=== PATIENT | female | born 1970 | race African-American/Black ===

== ENCOUNTER 2017-07-16 09:07 | Emergency (ER) | payer OTHER ==
[~2017-07-16] VITALS: Ht 177.8 cm; Wt 131.0 kg
[~2017-07-16 09:07] MED LIST: ASPI81TA82 PO; BIOT5000 PO; CALC500T21 PO; CANA300T PO; CARV12.5 PO; CHOL50006 PO; DIOV160T60 PO; GLUCTAB PO; TAB-TAB PO; VERA120T3 PO; VITATAB11 PO
[2017-07-16 09:09] VITALS: BP 174/103; PULSE 94; RESP 24; TEMP 97.5; O2SAT 100
--- NOTE | 2017-07-16 09:44 | PD ---
HPI . left side bump for > 1 week Chief Complaint: Skin Problem Time Seen by Provider: 09:44 Travel History International Travel<30 days: No Contact w/Intl Traveler<30days: No Traveled to known affect area: No History of Present Illness HPI 46 yr old female here with complaints of a bump on her back for quite some time. She says over the past week it started to get larger. She says that is causing her some discomfort and giving her trouble when she is trying to sleep. She denies any fever or chills. She tried to get with her primary care provider and could not obtain an appointment. She decided come to the emergency department for further evaluation. PFSH Past Medical History Cancer: No Cardiovascular Problems: Yes Chest Pain: Yes (stress test 2009) Diabetes: Yes Patient Takes Glucophage: Yes Diminished Hearing: No GERD: Yes Genitourinary: No Headaches: Yes Hepatitis: No Hiatal Hernia: No Hypertension: Yes Musculoskeletal: Yes (LOWER BACK) Neurologic: Yes (RT SIDED WEAKNESS INTERMITTENTLY) Psychiatric: No Reproductive: No Respiratory: Yes (MILD SLEEP APNEA) Migraines: Yes Sleep Apnea: Yes (MILD, NO CPAP) ?: Unknown Menopausal: No : 0 Para: 0 Miscarriage: 0 : 0 Past Surgical History Abdominal Surgery: Yes (GASTRIC SLEEVE) Body Medical Devices: NONE Cardiac Surgery: No Ear Surgery: No Endocrine Surgery: No Eye Surgery: Yes (RETINAL SURGERY RT EYE) Genitourinary Surgery: No Gynecologic Surgery: No Joint Replacement: No Oral Surgery: Yes (wisdom teeth removed) Pacemaker: No Thoracic Surgery: No Other Surgery: Yes ("lump removed from my lower left leg,benign") Family History Family Hypercholesterolemia: No Social History Alcohol Use: Yes Tobacco Use: No Substance Use: No Allergies-Medications (Allergen,Severity, Reaction): Coded Allergies: No Known Allergies (Verified , 07/16/17) Reported Meds & Prescriptions Reported Meds & Active Scripts Active Reported Biotin 5 000 Tab 5,000 Mcg PO DAILY Vitamin B Complex (B-Complex Vitamins) Tab 1 Tab PO DIRECTED Vitamin D (Cholecalciferol) 5,000 Unit Tab 10,000 Unit PO DIRECTED Diovan 160 mg (Valsartan) 160 Mg Tab 160 Mg PO DAILY Invokana (Canagliflozin) 300 Mg Tab 1 Tab PO DAILY Calcium 500+D (Calcium/Vitamin D) 500 + Tab 500 + PO BID Multivitamin (Multivitamins) 1 Tab Tab 1 Tab PO TID Aspir-81 (Aspirin) 81 Mg Tab 81 Mg PO DAILY Glucophage (Metformin HCl) 500 Mg Tab 1,000 Mg PO BID TAKE IF BLOOD SUGAR IS GREATER THAT 150 Verapamil Hcl (Verapamil HCl) 120 Mg Tab 180 Mg PO BID Coreg 12.5 mg (Carvedilol) 12.5 Mg Tab 6.25 Mg PO BID Review of Systems General / Constitutional: No: Fever Eyes: No: Visual changes HENT: No: Headaches Cardiovascular: No: Chest Pain or Discomfort Respiratory: No: Shortness of Breath Gastrointestinal: No: Abdominal Pain Genitourinary: No: Dysuria Musculoskeletal: No: Pain Skin: Positive Lumps (left side of back ), No Rash Neurologic: No: Weakness Psychiatric: No: Depression Endocrine: No: Polydipsia Hematologic/Lymphatic: No: Easy Bruising Physical Exam Narrative GENERAL: AAO x 3, no acute distress, Well-nourished, well-developed patient. SKIN: Warm and dry. No visible rashes or bruising. left side of back with what appears to be a sebaceous cyst without evidence of infection, no erythema, edema , fluctuance, or warmth. HEAD: Normocephalic and atraumatic. EYES: No scleral icterus. No injection or drainage. ENT: No nasal drainage noted. Mucous membranes pink. Airway patent. NECK: Supple, trachea midline. No JVD. CARDIOVASCULAR: Regular rate and rhythm without murmurs, gallops, or rubs. RESPIRATORY: Breath sounds equal bilaterally. No accessory muscle use. No rhonchi or rales. GASTROINTESTINAL:visual inspection normal EXTREMITIES: No cyanosis or edema. BACK: No obvious deformity. NEURO: CN II-12 intact, PSYCH: AAO x 3, normal affect. Data Data Last Documented VS Vital Signs Date Time Temp Pulse Resp B/P (MAP) Pulse Ox O2 Delivery O2 Flow Rate FiO2 07/16/17 09:09 97.5 94 24 174/103 (126) 100 Room Air MDM Medical Decision Making Medical Screen Exam Complete: Yes Emergency Medical Condition: No Medical Record Reviewed: Yes Differential Diagnosis Sebaceous cyst, less likely infected sebaceous cyst, less likely abscess Narrative Course A medical screening exam was performed: At the time of evaluation the presenting medical condition was determined not to be of an emergent nature. The patient was given the option of receiving additional care, but declined. Patient was given options for additional community resources from which to obtain care. The Patient Has Been advised to seek medical attention for their presenting complaint. The patient has been advised to return to the ER at any time if an emergent condition develops. Diagnosis Primary Impression: Encounter for medical screening examination Condition: Stable Aleyda Watters Jul 16, 2017 09:44
== END 2017-07-16 10:05 | disposition left against medical advice (07) ==
LOC: NETRI 09:07
DX: R22.2 Localized swelling, mass and lump, trunk (principal)
CPT/HCPCS: 99281

== ENCOUNTER 2017-08-07 16:16 | Emergency (ER) | payer OTHER ==
[~2017-08-07] VITALS: Ht 177.8 cm; Wt 140.0 kg
[2017-08-07 16:19] VITALS: BP 175/99; PULSE 95; RESP 15; TEMP 98.4; O2SAT 98
[2017-08-07] MEDS ORDERED: SODIUM CHLOR 0.9% 1000 ML INJ 1,000 ML IV ONE (17:21)
[2017-08-07] MEDS ORDERED: SODIUM CHLORIDE 0.9% FLUSH 10 ML FLUSH IVF PRN (17:30)
[2017-08-07] MEDS ORDERED: MECLIZINE HCL 25 MG TAB PO ONE (17:30)
--- NOTE | 2017-08-07 17:31 | PD ---
HPI Chief Complaint: Dizziness Time Seen by Provider: 17:11 Travel History International Travel<30 days: No Contact w/Intl Traveler<30days: No Traveled to known affect area: No History of Present Illness HPI 46-year-old female presents to the emergency department for evaluation of 2 episodes of dizziness that occurred today while she was leaving work. She states they lasted a couple of minutes each time. She felt lightheaded and states she was diaphoretic and had a headache. She states that the symptoms are completely resolved at this time. She denies any chest pain during the dizziness or now. No shortness of breath. No abdominal pain. No nausea, vomiting, diarrhea. Patient reports history of hypertension and diabetes. She denies . Patient denies any weakness or syncope. No visual changes. Patient states that in the past, she has had similar symptoms with a migraine headache. No history of heart disease. PFSH Past Medical History Cancer: No Cardiovascular Problems: Yes Chest Pain: Yes (stress test 2009) Diabetes: Yes Patient Takes Glucophage: Yes (08/07/17 @ 0900) Diminished Hearing: No GERD: Yes Genitourinary: No Headaches: Yes Hepatitis: No Hiatal Hernia: No Hypertension: Yes Musculoskeletal: Yes (LOWER BACK) Neurologic: Yes (RT SIDED WEAKNESS INTERMITTENTLY) Psychiatric: No Reproductive: No Respiratory: Yes (MILD SLEEP APNEA) Migraines: Yes Sleep Apnea: Yes (MILD, NO CPAP) ?: Not Menopausal: No : 0 Para: 0 Miscarriage: 0 : 0 Past Surgical History Abdominal Surgery: Yes (GASTRIC SLEEVE) Body Medical Devices: NONE Cardiac Surgery: No Ear Surgery: No Endocrine Surgery: No Eye Surgery: Yes (RETINAL SURGERY RT EYE) Genitourinary Surgery: No Gynecologic Surgery: No Joint Replacement: No Neurologic Surgery: No Oral Surgery: Yes (wisdom teeth removed) Pacemaker: No Thoracic Surgery: No Other Surgery: Yes ("lump removed from my lower left leg,benign") Family History Family Hypercholesterolemia: No Social History Alcohol Use: No Tobacco Use: No Substance Use: No Allergies-Medications (Allergen,Severity, Reaction): Coded Allergies: No Known Allergies (Verified , 07/16/17) Reported Meds & Prescriptions Reported Meds & Active Scripts Active Reported Biotin 5 000 Tab 5,000 Mcg PO DAILY Vitamin B Complex (B-Complex Vitamins) Tab 1 Tab PO DIRECTED Vitamin D (Cholecalciferol) 5,000 Unit Tab 10,000 Unit PO DIRECTED Diovan 160 mg (Valsartan) 160 Mg Tab 160 Mg PO DAILY Invokana (Canagliflozin) 300 Mg Tab 1 Tab PO DAILY Calcium 500+D (Calcium/Vitamin D) 500 + Tab 500 + PO BID Multivitamin (Multivitamins) 1 Tab Tab 1 Tab PO TID Aspir-81 (Aspirin) 81 Mg Tab 81 Mg PO DAILY Glucophage (Metformin HCl) 500 Mg Tab 1,000 Mg PO BID TAKE IF BLOOD SUGAR IS GREATER THAT 150 Verapamil Hcl (Verapamil HCl) 120 Mg Tab 180 Mg PO BID Coreg 12.5 mg (Carvedilol) 12.5 Mg Tab 6.25 Mg PO BID Review of Systems Except as stated in HPI: all other systems reviewed are Neg Physical Exam Narrative GENERAL: Well-nourished, well-developed obese female patient, afebrile. SKIN: Focused skin assessment warm/dry. HEAD: Normocephalic. Atraumatic. ENT: Mucosa pink and moist. No erythema or exudates. No uvular edema. No uvular , palatal, or tonsillar deviation. Airway patent. Nasal turbinates appear normal without nasal blood, purulent drainage or septal hematoma. Bilateral tympanic membranes are clear without erythema or perforation. EYES: No scleral icterus. No injection or drainage. NECK: Supple, trachea midline. No JVD or lymphadenopathy. CARDIOVASCULAR: Regular rate and rhythm without murmurs, gallops, or rubs. RESPIRATORY: Breath sounds equal bilaterally. No accessory muscle use. Lungs sounds are clear to auscultation. GASTROINTESTINAL: Abdomen soft, non-tender, nondistended. MUSCULOSKELETAL: No cyanosis, or edema. NEUROLOGICAL: Awake and alert. Cranial nerves II through XII intact. Motor and sensory grossly within normal limits. Five out of 5 muscle strength in all muscle groups. Normal speech. Finger to nose is normal bilaterally. Heel-to- wall is normal bilaterally. Data Data Last Documented VS Vital Signs Date Time Temp Pulse Resp B/P (MAP) Pulse Ox O2 Delivery O2 Flow Rate FiO2 08/07/17 18:03 84 18 158/93 (114) 83 18 160/94 (116) 95 18 163/90 (114) 08/07/17 17:44 99 Room Air 08/07/17 16:19 98.4 Orders Orders Electrocardiogram (08/07/17 ) Electrocardiogram (08/07/17:21) Ed Urine Pregnancytest Poc (08/07/17:) Complete Blood Count With Diff (08/07/17:) Comprehensive Metabolic Panel (08/07/17) Magnesium (Mg) (08/07/17:) Ckmb (Isoenzyme) Profile (08/07/17:) Troponin I (08/07/17:) Urinalysis - C+S If Indicated (08/07/17:) Ecg Monitoring (08/07/17:) Iv Access Insert/Monitor (08/07/17:) Oximetry (08/07/17) Meclizine (Antivert) (08/07/17:) Sodium Chloride 0.9% Flush (Ns Flush) (08/07/17:) Sodium Chlor 0.9% 1000 Ml Inj (Ns 1000 M (08/07/17:) Orthostatic Vital Signs (08/07/17:) Lipase (08/07/17:) Labs Laboratory Tests Test 08/07/17 17:29 08/07/17 17:37 Urine Color YELLOW Urine Turbidity CLEAR Urine pH 5.0 Urine Specific [place] 1.035 Urine Protein NEG mg/dL Urine Glucose (UA) 1000 mg/dL Urine Ketones TRACE mg/dL Urine Occult Blood NEG Urine Nitrite NEG Urine Bilirubin NEG Urine Urobilinogen LESS THAN 2.0 MG/DL Urine Leukocyte Esterase NEG Urine RBC 1 /hpf Urine WBC 1 /hpf Urine Squamous Epithelial Cells <1 /hpf Microscopic Urinalysis Comment CULT NOT INDICATED White Blood Count 8.5 TH/MM3 Red Blood Count 4.51 MIL/MM3 Hemoglobin 13.6 GM/DL Hematocrit 40.8 % Mean Corpuscular Volume 90.6 FL Mean Corpuscular Hemoglobin 30.2 PG Mean Corpuscular Hemoglobin Concent 33.3 % Red Cell Distribution Width 13.8 % Platelet Count 311 TH/MM3 Mean Platelet Volume 8.9 FL Neutrophils (%) (Auto) 54.8 % Lymphocytes (%) (Auto) 36.4 % Monocytes (%) (Auto) 6.5 % Eosinophils (%) (Auto) 1.2 % Basophils (%) (Auto) 1.1 % Neutrophils # (Auto) 4.7 TH/MM3 Lymphocytes # (Auto) 3.1 TH/MM3 Monocytes # (Auto) 0.6 TH/MM3 Eosinophils # (Auto) 0.1 TH/MM3 Basophils # (Auto) 0.1 TH/MM3 CBC Comment DIFF FINAL Differential Comment Blood Urea Nitrogen 20 MG/DL Creatinine 0.74 MG/DL Random Glucose 112 MG/DL Total Protein 8.0 GM/DL Albumin 3.5 GM/DL Calcium Level 8.5 MG/DL Magnesium Level 2.0 MG/DL Alkaline Phosphatase 76 U/L Aspartate Amino Transf (AST/SGOT) 14 U/L Alanine Aminotransferase (ALT/SGPT) 25 U/L Total Bilirubin 0.2 MG/DL Sodium Level 137 MEQ/L Potassium Level 3.8 MEQ/L Chloride Level 103 MEQ/L Carbon Dioxide Level 24.5 MEQ/L Anion Gap 10 MEQ/L Estimat Glomerular Filtration Rate 103 ML/MIN Total Creatine Kinase 80 U/L Troponin I LESS THAN 0.02 NG/ML Lipase 231 U/L [facility] Medical Decision Making Medical Screen Exam Complete: Yes Emergency Medical Condition: Yes Medical Record Reviewed: Yes Differential Diagnosis Vertigo versus orthostatic hypotension versus electrolyte abnormality versus dehydration versus UTI Narrative Course 46-year-old female presents to the emergency department for 2 episodes of dizziness that lasted a minute to 2 minutes each with diaphoresis and headache. She states symptoms are resolved at this time. She does appear well on exam. Neuro exam is unremarkable. EKG shows sinus rhythm, heart rate 81, no acute ST changes. CBC, CMP, magnesium, CK, troponin, UA, urine tests are ordered and pending. Patient is given meclizine 25 mg by mouth and normal saline 1 L IV bolus. Orthostatic vital signs are ordered and pending. CBC is unremarkable. CMP shows no acute abnormality. Lipase is 231. Magnesium is 2.0. CK is 80. Troponin is less than 0.02. UA is negative for acute infection. UPT is negative. Orthostatic VS are negative for orthostatic hypotension. I discussed the case with attending physician, Dr. Garcia, who agrees with plan and disposition. Patient is discharged prescription for meclizine. She is instructed to follow-up with her primary care physician. She is return here for any acute worsening of symptoms. She verbalizes agreement and understanding. The patient was discharged in stable condition with instructions, including return instructions and follow up instructions. Diagnosis Primary Impression: Dizziness Referrals: Primary Care Physician 2 days Patient Instructions: Dizziness (ED), General Instructions Additional Instructions: Take meclizine as directed as needed for dizziness. Follow-up with your primary care physician. Return to the emergency department for any acute worsening of symptoms. Med/Other Pt SpecificInfo: Prescription(s) given Scripts Meclizine (Meclizine) 25 Mg Tab 25 MG PO TID Y for VERTIGO, #18 TAB 0 Refills Prov: Mayte Ramos 08/07/17 Disposition: 01 DISCHARGE HOME Condition: Stable Mayte Ramos Aug 07, 2017 17:31
[2017-08-07 17:40] LABS: BLOOD, URINE NEG (NEG); COMMENT (UR) CULT NOT INDICATED; CULTURE IF INDICATED CULT NOT INDICATED; GLUCOSE,URINE 1000 mg/dL (NEG); KETONE, URINE TRACE mg/dL (NEG); NITRITE,URINE NEG (NEG); SQUAMOUS EPITHELIAL CELL URINE <1 /hpf (0-5); URINE COLOR YELLOW (YELLW/STRAW)
[2017-08-07 17:44] VITALS: O2SAT 99
[2017-08-07 18:03] VITALS: BP_SYST 158; BP_SYST 160; BP_SYST 163; BP_DIAS 90; BP_DIAS 93; BP_DIAS 94; RESP 18
[2017-08-07 18:07] LABS: HEMATOCRIT 40.8 % (35.0-46.0); HEMO FLAGS DIFF FINAL; MEAN CELL VOLUME 90.6 FL (80.0-100.0); MEAN CORPUSCULAR HEMOGLOBIN 30.2 PG (27.0-34.0); MEAN CORPUSCULAR HGB CONC 33.3 % (32.0-36.0); NEUT % 54.8 % (16.0-70.0); PLATELET COUNT 311 TH/MM3 (150-450); RED BLOOD COUNT 4.51 MIL/MM3 (4.00-5.30); RED CELL DISTRIBUTION WIDTH 13.8 % (11.6-17.2); WHITE BLOOD COUNT 8.5 TH/MM3 (4.0-11.0)
[2017-08-07 18:08] LABS: AUTOMATED NEUTROPHIL # 4.7 TH/MM3 (1.8-7.7); BASOPHIL # 0.1 TH/MM3 (0-0.2); BASOPHIL % 1.1 % (0.0-2.0); EOSINOPHIL # 0.1 TH/MM3 (0-0.4); EOSINOPHIL % 1.2 % (0.0-4.0); LYMPH % 36.4 % (9.0-44.0); LYMPHOCYTE # 3.1 TH/MM3 (1.0-4.8); MONO % 6.5 % (0.0-8.0)
[2017-08-07 18:19] LABS: ALT (GPT) 25 U/L (10-53); ANION GAP 10 MEQ/L (5-15); AST (GOT) 14 U/L (15-37); BICARBONATE 24.5 MEQ/L (21.0-32.0); BLOOD UREA NITROGEN 20 MG/DL (7-18); CHLORIDE 103 MEQ/L (98-107); GLOMERULAR FILTRATION RATE 103 ML/MIN (>89); POTASSIUM 3.8 MEQ/L (3.5-5.1); SODIUM (NA) 137 MEQ/L (136-145)
[2017-08-07 18:22] LABS: ALKALINE PHOSPHATASE 76 U/L (45-117); TOTAL BILIRUBIN ADULT 0.2 MG/DL (0.2-1.0)
[2017-08-07 18:26] LABS: CREATINE KINASE 80 U/L (26-192)
[2017-08-07] MEDS ORDERED: MECL-62 PO (18:37)
--- NOTE | 2017-08-08 13:14 | EKG ---
Date Performed: 08/07/2017 Time Performed: 17:26:55 PTAGE: 46 years EKG: Sinus rhythm NORMAL ECG PREVIOUS TRACING : 06/16/2013 07.45 Compared to prior tracing no significant change DOCTOR: Brad Cheung Interpretating Date/Time 08/08/2017 13:11:13
== END 2017-08-07 19:10 | disposition home or self-care (01) ==
LOC: NEPC 16:16
DX: R42 Dizziness and giddiness (principal); R61 Generalized hyperhidrosis; R51 Headache; E11.9 Type 2 diabetes mellitus without complications; I10 Essential (primary) hypertension; Z79.899 Other long term (current) drug therapy
CPT/HCPCS: 80053; 81001; 82550; 83690; 83735; 84484; 84703; 85025; 93005; 99284; J7030